=== PATIENT | female | born 1950 | race Caucasian/White ===

== ENCOUNTER 2023-08-04 07:35 | Outpatient (CLI) | payer MEDICARE, SELFPAY ==
--- NOTE | 2023-08-04 08:30 | ECG_ITS ---
Measurements Intervals Gary Rate: 84 P: 17 MA: 148 QRS: 8 QRSD: 99 T: 73 QT: 377 QTc: 446 Interpretive Statements SINUS RHYTHM POSSIBLE INFERIOR MYOCARDIAL INFARCTION [30 ms Q WAVE IN II/aVF], PROBABLY OLD ABNORMAL ECG NO PREVIOUS ECG AVAILABLE FOR COMPARISON Electronically Signed On 08-04-2023 10:33:59 CDT by Omar Montalvo M.D.
[2023-08-04 08:52] LABS: Basophils Percent Auto 0.6 % (0.2-1.2); Eosinophils Absolute Auto 0.1 K/mm3 (0-0.3); Eosinophils Percent Auto 1.8 % (0-4.4); Hematocrit 40.9 % (37.0-47.0); Hemoglobin 13.7 g/dL (12.0-15.0); Immature Granulocyte Absolute 0.04 K/mm3 (0.00-0.031); Immature Granulocyte Percent A 0.6 % (0-0.5); Lymphocytes Absolute Auto 0.83 K/mm3 (0.9-3.2); Lymphocytes Percent Auto 11.6 % (18.3-44.2); Mean Corpuscular HGB Conc 33.5 g/dl (32-36); Mean Corpuscular Hemoglobin 31.1 pg (26-34); Monocytes Absolute Auto 0.4 K/mm3 (0.1-0.6); Neutrophils Absolute Auto 5.7 K/mm3 (1.3-6.7); Neutrophils Percent Auto 79.4 % (45.5-73.1); Platelet Count Result 285 k/mm3 (150-375); Red Cell Distribution Width 12.4 % (11.5-14.5); White Blood Count 7.2 K/mm3 (4.5-10.0)
[2023-08-04 09:00] LABS: Urine Cotinine NEGATIVE
[2023-08-04 09:03] LABS: Albumin Level 4.7 g/dL (3.5-5.1)
[2023-08-04 09:07] LABS: Anion Gap 8 mmol/L (8-16); Blood Urea Nitrogen 21 mg/dL (7-17); Calcium 10.5 mg/dL (8.4-10.2); Carbon Dioxide 28 mmol/L (22-30); Chloride 103 mmol/L (98-107); Estimated Glomerular Filt Rate 48; Glucose 100 mg/dL (65-110); Potassium 3.9 mmol/L (3.4-5.0); Sodium 139 mmol/L (137-145)
== END 2023-08-04 07:36 | disposition home or self-care (01) ==
LOC: ANHSURGERY 07:41
PROVIDERS: Anesthesiology; PCP Family Medicine; Visit Provider Orthopaedic Surgery
DX: Z01.812 Encounter for preprocedural laboratory examination (principal); Z01.810 Encounter for preprocedural cardiovascular examination; M17.12 Unilateral primary osteoarthritis, left knee; Z79.899 Other long term (current) drug therapy; R94.31 Abnormal electrocardiogram [ECG] [EKG]
CPT/HCPCS: 36415; 80048; 80307; 82040; 83036; 85025; 86850; 86900; 86901; 87081; 93005

== ENCOUNTER 2023-08-09 01:08 | Day surgery (SDC) | payer MEDICARE, SELFPAY ==
--- NOTE | 2023-08-04 07:39 | PC.NURSE ---
PRE-OP INSTRUCTIONS, PLEASE READ CAREFULLY Report to the Outpatient Waiting Room, entrance under the green pavilion located off [facility], at time _0600_ on date _08/09/23_. Planned Procedure Time: _0730_. PACK A SMALL OVERNIGHT BAG AND LEAVE IN THE CAR ALONG WITH YOUR WALKER Time changes happen often and if your time is changed the preop area will call you the afternoon before. - You and your visitor will be asked to self-screen and do not enter if you have any COVID symptoms. - A mask is optional within the hospital at this time. -VISITING HOURS 8AM-8PM Patients may have clear liquids (water, carbonated beverages, clear teas, apple juice) until 3 hours prior to surgery with a maximum of 20 ounces. - No food from midnight until time of surgery Take the following medications with a SIP of water the morning of surgery: _AMLODIPINE, TYLENOL IF NEEDED_ DO NOT STOP ANY OF YOUR OTHER PRESCRIPTION MEDICATIONS PRIOR TO SURGERY ?EXCEPT THE FOLLOWING Medications to discontinue per ANESTHESIA - _MULTIVITAMIN, GLUCOSAMINE, PROBIOTIC 3 DAYS PRIOR TO SURGERY, Date to take last dose 08/05/23_ Please no make-up, nail kuwaiti, hairspray, perfume, deodorant, or body powder the day of surgery. No jewelry (including any body piercings) or valuables the day of surgery, leave them at home. Please take a shower or bath the night before, or the morning of, surgery with an antibacterial soap. Wear comfortable, loose fitting clothing. - Jewelry must be removed prior to entering the operating room. Rings and piercings that are not removed may be cut off. - The hospital will not accept responsibility for valuables. - Please leave all valuables, including medications, at home the day of surgery. If you are going home after surgery, a licensed four horse hitch driver must drive you home. - NO public transportation without another adult if you receive anesthesia. - We recommend that an adult stay with you for 24 hours following discharge. - We also recommend that you do not drive, make important decision, drink alcoholic beverages, or take any drugs that were not prescribed by your health care provider for at least 24 hours after your discharge time. Follow any additional instructions given to you from your surgeon. If you or anyone in your household have experienced Covid symptoms in the past week, please notify your surgeon or the nurse liaison at the phone number below for possible testing. Instructions given to _PATIENT_and asked if any additional questions and then verbalized understanding. Patient advised to call surgeon office or pre surgery nurse liaison [phone] if any additional questions.
[2023-08-04 08:05] VITALS: BP 146/72; PULSE 86; RESP 18; TEMP 37.2; O2SAT 98; BMI 26.9
[2023-08-09] VITALS (16 sets, daily range): BP systolic 109–150; BP diastolic 56–85; PULSE 70–93; RESP 12–18; TEMP 36.4–36.7; O2SAT 93–99
--- NOTE | ~2023-08-09 | XR_ITS ---
EXAMINATION: XR_[id number]_CR DATE: 08/09/2023 10:36 INDICATION: Postoperative evaluation following left total knee arthroplasty. TECHNIQUE: Anteroposterior and lateral views of the left knee were obtained. COMPARISON: None. FINDINGS: Left total knee arthroplasty with patellar resurfacing appears well seated and in near anatomic align ment. No fractures identified. Expected postoperative subcutaneous, intramedullary and intra-articul ar gas. IMPRESSION: 1. Left total knee arthroplasty, negative for postoperative purposes. Reviewed, dictated and finalized at location A.
[2023-08-09] MEDS: ONDANSETRON INJ 4 MG/2 ML VIAL IV PUSH (06:30)
[2023-08-09] MEDS: LACTATED RINGERS 1,000 ML 30 ML IV CONT ×2 (06:30→10:14)
[2023-08-09] MEDS: TRANEXAMIC ACID 1,000MG/ISO100 1,000 MG/100 ML BAG 200 MG IVPB (06:30)
[2023-08-09] MEDS: ACETAMINOPHEN 500 MG TABLET 1000 MG PO (06:30)
--- NOTE | 2023-08-09 07:10 | WPDHPUPDATE1 ---
History and Physical Update Update Date/Time: 08/09/23 07:10 History and Physical has been reviewed, including an updated exam of the patient. There are NO changes in the patient's condition. Risks, benefits, and alternatives have been discussed and questions answered. Patient agrees to proceed with procedure.
--- NOTE | 2023-08-09 07:19 | WPDANESEPPF ---
Anes - Initial Pre Proc Eval Procedure: Operation Date: 08/09/23 07:30 Proposed Procedures p Left Total Knee Arthroplasty, Right Knee Injection - Viraj Sesay MD Date/Time: 08/09/23 07:19 Surgeon: Viraj Sesay MD Pre Op Diagnosis: OA left knee Patient Data Age: 73 Gender: F Height: 1.62 m Weight: 70.6 kg Last Vital Signs Temp 37.2 C 08/04/23 08:05 Pulse 86 08/04/23 08:05 Resp 18 08/04/23 08:05 BP 146/72 H 08/04/23 08:05 Pulse Ox 98 08/04/23 08:05 O2 Del Method Room Air 08/04/23 08:05 Allergies Allergy/AdvReac Type Severity Reaction Status Date / Time No Known Allergies Allergy Verified 08/04/23 09:52 Home Medications Medication Instructions Recorded Confirmed Type naproxen sodium 220 mg tablet 220 mg PO BID PRN Pain 03/28/20 08/04/23 History (Aleve) anastrozole 1 mg tablet 1 mg PO QAM 05/20/21 08/04/23 History amlodipine 5 mg tablet 5 mg PO DAILY 04/07/22 08/04/23 History triamterene 37.5 1 tablet PO QAM 04/07/22 08/04/23 History mg-hydrochlorothiazide 25 mg tablet Probiotic 2 tab-cap QAM 08/04/23 08/04/23 History acetaminophen 500 mg tablet 500 mg PO QID PRN Pain 08/04/23 08/04/23 History calcium carbonate 600 mg-vitamin 1 tablet PO DAILY 08/04/23 08/04/23 History D3 10 mcg (400 unit) tablet (Calcium 600 + D(3)) glucosamine sulf dipot 1 cap PO HS 08/04/23 08/04/23 History chlr,msm,chond 550 mg-C 30 mg-jeffrey 1 mg capsule (Glucosamine Chondroitin) multivitamin 1 tablet HS 08/04/23 08/04/23 History psyllium 1 packet PO BID 08/04/23 08/04/23 History rivaroxaban 10 mg tablet (Xarelto) 10 mg PO DAILY NM prophylaxis s/p 08/04/23 08/04/23 Rx surgery #14 tabs Patient hx anesthesia problems: none Family hx anesthesia problems: none Results Review: All pre-operative results and documents have been reviewed as part of the pre-operative evaluation. [facility] Past Medical History Medical History Arthritis Degenerative arthritis of knee, bilateral Hypertension Other joint replacement by other means [place] [address] Harshil Maya Surgical History Surgical History History of breast biopsy right- 12/2020 Family History Family History Father Heart disease Mother Arthritis Social History Social History Smoking status: Never smoker Second hand tobacco smoke exposure: No Additional smoking assessment comments: PT DENIES ALL FORMS OF TOBACCO USE Alcohol intake: current Drinks per week: 7 Alcohol use details: GLASS WINE/NIGHT Substance use: never Substance use type: does not use Lack of Transportation: No Lack of Food: Never True Current Housing: I Have Housing Concerned About Future Housing: No Difficulty Paying Gas/Electric Bills: No Difficulty Paying for Meds: No Currently Unemployed: No Education: Bachelor's Degree Difficulty w/ Childcare or Family Care: No Living arrangements: with family Additional living arrangements comments: Jason Corona Occupation/Education: retired Gender identity (if verbalized by the patient): Female Spiritual care concerns: No Anes - Eval Final PreProcedure Day of Procedure 08/09/23 07:19 Patient weight: overweight Heart: regular rate and rhythm Lungs: clear to auscultation Airway: Mallampati scale class II Neurological: alert and oriented Last oral intake: >/= 8 hours ASA classification: III Emergent: no Anesthetic plan: proceed Anesthesia type and monitoring: general LMA and standard monitoring Results Review: All pre-operative results and documents have been reviewed as part of the pre-operative evaluation. Informed Consent: The patient's anesthetic plan and its attendant risks and benefits were disc
--- NOTE | 2023-08-09 07:28 | WPDANESPNB ---
Anes - Peripheral Nerve Block Date/Time: 08/09/23 07:28 I have discussed with the patient/family/POA the placement of a peripheral nerve block for post-operative pain management, including associated risks, benefits, complications, and side effects. Alternative methods of post-operative analgesia were detailed. Questions were solicited and answers provided to the satisfaction of the patient/family/POA. Time-Out: A pre-procedural Time-Out was completed immediately before starting the procedure and confirmed: Patient Identification, Site, Procedure, Patient Position and the Availability of Requisite Equipment. Clinical Indications: Acute post-operative pain management requested by the operative surgeon. Nerve Block Insertion Note Anes-nerve block: femoral left and adductor canal left Patient position: supine Skin prep: chlorhexidine Needle: 22 gauge, stimulating, insulated echogenic needle. Needle length: 50 mm Technique: ultrasound Injectate: bupivacaine 0.5% with epi 5 mcg/ml (30cc no epi) and dexamethasone (mg) (8) Observations: tolerated well Complications: none Procedure start time:: 721 Procedure end time:: 725
[2023-08-09] MEDS: ceFAZolin 2 GM/D5W 50 ML 2 GM/50 ML BAG IVPB ×3 (07:32→23:37)
[2023-08-09] MEDS: GENTAMICIN BONE CEMENT REFOBACIN 1 EACH TOPICAL (08:20)
[2023-08-09] MEDS: TRIAMCINOLONE ACET INJ SUSP 50 MG/5 ML VIAL I-ARTICULR (08:21)
[2023-08-09] MEDS: ceFAZolin SODIUM 1 GM VIAL IV PUSH (09:35)
--- NOTE | 2023-08-09 09:59 | W.PM.PROC2 ---
Procedure Note - Detailed Date of Procedure 08/09/23 Pre-op Diagnosis Osteoarthritis both knees Post-op Diagnosis Same Procedure Performed 1. Left total knee replacement 2. Injection right knee Surgeon Viraj Sesay MD [facility] Management jaime Anesthesia General and Regional Description of Procedure The patient was identified and proper site identified. In the preop holding area the anesthesia team performed a left-sided sub sartorial block after which the patient was taken to the operating room and transferred to the OR table positioning supine taking care to pad the torso and extremities. After general anesthetic induction and intubation a nonsterile tourniquet was placed high on the left thigh and after the time-out the right knee was injected intra-articularly with 2 milliliters of 1% lidocaine and 20 milligrams of Kenalog. The left lower extremity was prepped and draped in the usual sterile fashion. The extremity was exsanguinated and with the knee flexed tourniquet was inflated to 300 mmHg remaining up for approximately 68 minutes. An anterior midline incision was made and a modified medial parapatellar approach was used. Infra and suprapatellar fat pads were excised. Patella was resected leaving 14 mm thickness and prepared for the size 32 round three peg component. Using the intramedullary guide the distal femur was cut in the proper orientation for the size six femoral component. Using the extramedullary guide the tibia was cut perpendicular to the long axis protecting collateral ligaments and popliteal structures. It was sized to a 6 minus. Flexion and extension gaps were balanced. Trial reduction was undertaken and the weight-bearing line was noted to passed through the center of the joint. Proximal tibia was drilled and punched in the proper orientation for the real component. Trial components were removed. The bone surfaces were washed with pulsatile lavage and dried. The real components were cemented simultaneously. The knee was held in extension and the patella held clamped until the cement had cured. Excess cement was removed from the joint. After trialing it was determined that the 10 mm insert gave full range of motion from 0-120 degrees of flexion and the patella tracked in the femoral groove with no lift-off. After final lavage the joint the real size 10 insert was placed and secured with a locking bar. A Betadine and saline wash was placed into the wound and allowed to sit for approximately 3 minutes and then evacuated. Periarticular tissues were infiltrated with 60 cc of the arthroplasty solution. Surgicel powder was applied into the wound during the closure. The extensor mechanism was repaired with #2 Vicryl suture and 0 looped PDS suture. Subcu was reapproximated with 3-0 Monocryl, 2-0 Quill and tissue adhesive for the skin. A sterile dressing was applied. She tolerated the procedure well, was awakened and extubated, transferred to the bed and was taken to recovery area in stable condition. There were no known intraoperative complications. Perioperative antibiotics were administered. Estimated Blood Loss 100 Tourniquet Time 68 Drains No Packing No Pathology None sent Complications No immediate complications Condition Stable Disposition PACU [facility] Billing Surgery - Charge Forward: Surgery Billing ([id number]; [id number])
--- NOTE | 2023-08-09 11:55 | ADMGEN ---
This patient, Enid Corona, was admitted to 2 Medical Room 241-01. Patient/family oriented to hospital policies and general routines including ID bracelet, bed and alarms, visiting hours, pain management, procedures, bathroom and other care routines, personal items, smoking policy, room service/diet, and visiting hours. Information on how to activate the Rapid Response Team has been discussed. Patient/Family are encouraged to report perceived risks to care and to ask questions if they do not understand what they are told or what they should do.
--- NOTE | 2023-08-09 12:58 | WPDCN ---
Assessment and Plan Assessment and plan (1) Degenerative arthritis of knee, bilateral: Qualifiers: Osteoarthritis type: primary Qualified Code(s): M17.0 - Bilateral primary osteoarthritis of knee Code(s): M17.0 - Bilateral primary osteoarthritis of knee Status: Chronic Assessment and Plan: Postoperative day 0 status post left total knee replacement and injection of right knee. Wound care, pain control, and DVT prophylaxis deferred to Dr. Sesay. Check baseline labs in a.m. PT/OT consulted. (2) Hypertension: Code(s): I10 - Essential (primary) hypertension Status: Acute Assessment and Plan: Blood pressures were reviewed and they have been stable postoperatively. Continue amlodipine and triamterene/hydrochlorothiazide. (3) History of right breast cancer: Code(s): Z85.3 - Personal history of malignant neoplasm of breast Status: Acute Assessment and Plan: Status post excision, radiation completed in March 2021. Continue anastrozole 1 mg daily. Plan Thank you for allowing us to participate in this patient's care. Please do not hesitate to contact us with any questions. HPI Data of Consult Date/Time: 08/09/23 12:45 Requesting Physician: Viraj Sesay MD Consult Narrative Reason for consult: Postoperative medical management. Narrative: This is a 73-year-old female with osteoarthritis of both knees status post left total knee replacement and right injection whom the hospitalist service has been consulted for help managing her medical conditions postoperatively. She has had longstanding pain in both knees and despite ongoing conservative she has continued to have pain. Thus she elected for replacement of the left knee today with injection of right knee per Dr. Sesay. Her surgery was performed under general and regional anesthesia with no immediate complications documented an estimated blood loss of 100 mL. Postoperatively she has done very well. She has been up to the chair and ambulating to the bathroom without much issue. Her pain is well controlled. She denies postoperative fever, chills, sweats, chest pain, shortness a breath, nausea, and vomiting. She is quite healthy. Her medical history is significant for right-sided breast cancer status post excision and radiation therapy which was completed in March 2021; she is on an aromatase inhibitor daily. She has hypertension which is well controlled on her home medications which include amlodipine and triamterene/hydrochlorothiazide. She has no history of venous thromboembolism. On discharge she will be going home where her will help her. Review of Systems Review of Systems: Twelve systems were reviewed and are negative except for as per HPI. [facility] Past Medical History Medical History (Updated 08/09/23 @ 13:07 by Viky Orta PA-C) Arthritis Cancer of right breast (12/2020) Status post excision and radiation completed in March 2021. Degenerative arthritis of knee, bilateral Diverticulitis Hypertension Surgical History Surgical History (Updated 08/09/23 @ 13:07 by Viky Orta PA-C) History of appendectomy History of breast lump/mass excision (12/2020) For breast cancer. History of colonoscopy with polypectomy History of toe surgery (1995) Bilateral great toe replacement. Family History Family History (Updated 08/09/23 @ 13:04 by Viky Orta PA-C) Father Heart disease Malignant neoplasm of prostate Mother Arthritis Sibling Heart disease Social History Social History (Updated 08/09/23 @ 13:05 by Viky Orta PA-C) Social History: Surrogate medical decision maker: Jason Corona, spouse. Code status: Full code. Smoking status: Never smoker Second hand tobacco smoke exposure: No Alcohol intake: current Drinks per week: 7 Alcohol use details: One glass of wine a night. Substance use: never Substance use type: does
[2023-08-09] MEDS: oxyCODONE/ACETAMINOPHEN (*CRX) 5-325 MG TABLET 1 TABLET PO ×3 (13:16→20:42)
[2023-08-09] MEDS: SENNA/DOCUSATE SODIUM TABLET 2 TAB PO (17:04)
[2023-08-09] MEDS: MULTIVITAMINS THERAPEUTIC TAB (*BKC) 1 TABLET BY MOUTH (20:42)
[2023-08-09] MEDS: FAMOTIDINE 20 MG TABLET PO (20:42)
[2023-08-10] MEDS: oxyCODONE/ACETAMINOPHEN (*CRX) 5-325 MG TABLET 1 TABLET PO ×3 (00:14→08:07)
[2023-08-10 01:20] VITALS: BP 112/61; PULSE 66; RESP 18; TEMP 36.9; O2SAT 95
[2023-08-10 05:58] LABS: Hematocrit 32.4 % (37.0-47.0); Hemoglobin 10.5 g/dL (12.0-15.0); Mean Corpuscular HGB Conc 32.4 g/dl (32-36); Mean Corpuscular Hemoglobin 30.9 pg (26-34); Mean Corpuscular Volume 95.3 fl (80-100); Mean Platelet Volume 9.6 fl (7.4-10.4); Platelet Count Result 232 k/mm3 (150-375); Red Cell Distribution Width 12.1 % (11.5-14.5); White Blood Count 9.7 K/mm3 (4.5-10.0)
[2023-08-10] MEDS: ceFAZolin 2 GM/D5W 50 ML 2 GM/50 ML BAG IVPB (06:01)
[2023-08-10 06:10] LABS: Anion Gap 8 mmol/L (8-16); Blood Urea Nitrogen 21 mg/dL (7-17); Calcium 8.9 mg/dL (8.4-10.2); Carbon Dioxide 23 mmol/L (22-30); Chloride 103 mmol/L (98-107); Estimated CRCL calculation 34 ml/min; Estimated Glomerular Filt Rate 48; Glucose 124 mg/dL (65-110); Magnesium 2.2 mg/dL (1.6-2.3); Potassium 4.3 mmol/L (3.4-5.0); Sodium 134 mmol/L (137-145)
[2023-08-10 06:15] VITALS: BP 114/57; PULSE 65; RESP 20; TEMP 36.6; O2SAT 98
--- NOTE | 2023-08-10 07:30 | PM.DS ---
DS: Admitting Diagnosis Discharge Date August 10, 2023 Admitting Diagnosis osteoarthritis knees DS: Discharge Diagnosis Discharge Diagnosis (1) Degenerative arthritis of knee, bilateral: Qualifiers: Osteoarthritis type: primary Qualified Code(s): M17.0 - Bilateral primary osteoarthritis of knee Code(s): M17.0 - Bilateral primary osteoarthritis of knee Status: Chronic (2) History of left knee replacement: Code(s): Z96.652 - Presence of left artificial knee joint Status: Resolved Plan patient will be discharged home today after her second physical therapy. Overnight has done very well. Home going instructions were reviewed. Therapy begins in one week. Follow-up with me will be in two weeks. She is to call with any questions prior to follow-up. DS: Summary Hospital Course Reason for hospitalization: Observation following outpatient procedure. Hospital Course: Patient underwent a left total knee replacement, right knee intra-articular steroid injection on August 09, 2023. She was admitted to the floor for observation and to begin physical therapy. Did very well overnight. Seen by the hospitalist service. Overall stay uneventful. Status at Discharge Functional status at discharge: uses cane/walker Overall status at discharge: patient is not back to baseline Time Spent with Patient Time attestation: Total time spent providing and/or coordinating discharge services: Exam Const: General: cooperative, no acute distress and alert Nutritional Appearance: other Orientation/consciousness: patient oriented x3 Limitations: no limitations HENMT: Head: normal to inspection Chest: Chest palpation & inspection: normal inspection of the chest Resp: Effort & Inspection: normal respiratory effort and able to speak in complete sentences GI: Inspection: other ( Nondistended) Neuro: General: patient oriented x3 Cognition (Neuro): normal cognition Speech: normal speech Extrem: General: normal to inspection Other: Exam of Left knee demonstrates dry incision with minimal swelling and minimal bruising. Calves negative. Neurovascular status unremarkable left lower extremity. Crepitus and stiffness in the right knee but no irritability this morning. Psych: Appearance: grossly normal Mental Status: mental status grossly normal Radiology Reports: Comments: EXAMINATION: [id number]_CR DATE: 08/09/2023 10:36 INDICATION: Postoperative evaluation following left total knee arthroplasty. TECHNIQUE: Anteroposterior and lateral views of the left knee were obtained. COMPARISON: None. FINDINGS: Left total knee arthroplasty with patellar resurfacing appears well seated and in near anatomic alignment.? No fractures identified. Expected postoperative subcutaneous, intramedullary and intra-articular gas. IMPRESSION: 1. Left total knee arthroplasty, negative for postoperative purposes. Reviewed, dictated and finalized at location A. DS: Data Data Completed and Pending Labs on day of discharge: Labs from last 24 hours 08/10/23 05:19 WBC 9.7 RBC 3.40 L Hgb 10.5 L D Hct 32.4 L MCV 95.3 MCH 30.9 MCHC 32.4 RDW 12.1 Plt Count 232 MPV 9.6 Sodium 134 L Potassium 4.3 Chloride 103 Carbon Dioxide 23 Anion Gap 8 BUN 21 H Creatinine 1.10 H Estim Creat Clear Calc 34 Estimated GFR 48 L Glucose 124 H Calcium 8.9 Magnesium 2.2 Discharge Plan Discharge Patient Disposition: Home, Self-Care Discharge Instructions: 3 times daily for 20 minutes each time, reclining in bed with ice packs over the incision and a pillow underneath the calf of the affected leg, not under the knee. Your wound is glued so it is okay to remove the dressing, get into the shower and get the wound wet in two days. Be sure to read through
[2023-08-10] MEDS: SENNA/DOCUSATE SODIUM TABLET 2 TAB PO (08:07)
[2023-08-10] MEDS: polyethylene glycoL 3350 17 GM POWD.PACK PO (08:07)
[2023-08-10] MEDS: RIVAROXABAN 10 MG TABLET PO (08:07)
[2023-08-10] MEDS: TRIAMTERENE 37.5 MG/HCTZ 25 MG (MAXZIDE) TABLET 1 TAB PO (08:07)
[2023-08-10] MEDS: ANASTROZOLE (*CHEMO) 1 MG TABLET PO (08:08)
[2023-08-10] MEDS: FAMOTIDINE 20 MG TABLET PO (08:08)
[2023-08-10] MEDS: amLODIPine BESYLATE 5 MG TABLET PO (08:08)
--- NOTE | 2023-08-10 09:13 | WPDANESPN ---
Anes - Prog Note Post-Op Date/Time: 08/10/23 09:13 Cardiovascular status: normal Respiratory status: normal Airway patency: baseline Mental status: baseline Post-Op hydration status: normal Vital Signs: Last Vital Signs Temp 97.9 F 08/10/23 06:15 Pulse 65 08/10/23 06:15 Resp 20 08/10/23 06:15 BP 114/57 L 08/10/23 06:15 Pulse Ox 98 08/10/23 06:15 O2 Del Method Room Air 08/09/23 13:52 O2 Flow Rate 1 08/09/23 11:54 Pain Score (VAS): 2 I/O: Intake & Output 08/09/23 08/10/23 08/10/23 23:59 07:59 15:59 Intake Total 240 700 Balance 240 700 Laboratory Tests 08/10/23 05:19 08/10/23 05:19 08/10/23 05:19 WBC 9.7 RBC 3.40 L Hgb 10.5 L D Hct 32.4 L MCV 95.3 MCH 30.9 MCHC 32.4 RDW 12.1 Plt Count 232 MPV 9.6 Sodium 134 L Potassium 4.3 Chloride 103 Carbon Dioxide 23 Anion Gap 8 BUN 21 H Creatinine 1.10 H Estim Creat Clear Calc 34 Estimated GFR 48 L Glucose 124 H Calcium 8.9 Magnesium 2.2 Post-procedural complaints: none Patient Feedback: Patient satisfied with anesthetic care. Other Findings: PNB continues to provide pain relief. Pain rated 1-3
[2023-08-10 10:28] VITALS: O2SAT 92
== END 2023-08-10 10:50 | disposition home or self-care (01) ==
LOC: ANHSURGERY 09:54 → ANH2MED 11:50
PROVIDERS: Physician Assistant; PCP Family Medicine; Visit Provider Orthopaedic Surgery
PROC: (CPT 27447; principal; 2023-08-09 07:30)
DX: M17.0 Bilateral primary osteoarthritis of knee (principal); G89.18 Other acute postprocedural pain; I10 Essential (primary) hypertension; Z79.811 Long term (current) use of aromatase inhibitors; Z85.3 Personal history of malignant neoplasm of breast; Z92.3 Personal history of irradiation
CPT/HCPCS: 27447; 20610; 64447; 36415; 73560; 80048; 80307; 82040; 83036; 83735; 85025; 85027; 86850; 86900; 86901; 87081; 93005; 97110; 97116; 97161; 97165; 97530; 97535; A9270; C1713; J0171; J0690; J1100; J1170; J2001; J2270; J2405; J2704; J2795; J3010; J3301; J7120